=== PATIENT | male | born 1925 | race Caucasian/White ===

== ENCOUNTER 2016-12-04 00:22 | Emergency (ER) | payer MEDICARE ==
[~2016-12-04] VITALS: Ht 177.8 cm; Wt 94.0 kg
[~2016-12-04 00:22] MED LIST: 1-ME1LIQ PO; ALLO100T PO; ASPI81 PO; ATOR20TA PO; AUGM500T7 PO; AZIT250T74 PO; FINA5TAB77 PO; LISI40TA PO; TAMS0.4C67 PO; TOVI4TAB PO
[2016-12-04 00:31] VITALS: BP 195/87; PULSE 98; RESP 20; TEMP 97.8; O2SAT 95
[2016-12-04] MEDS ORDERED: TOVI4TAB PO (00:53)
[2016-12-04] MEDS ORDERED: LISI40TA PO (00:53)
[2016-12-04] MEDS ORDERED: ATOR40TA16 PO (00:53)
[2016-12-04] MEDS ORDERED: ALLO100T PO (00:53)
[2016-12-04] MEDS ORDERED: FINA5TAB2 PO (00:53)
--- NOTE | 2016-12-04 02:16 | PD ---
HPI Chief Complaint: Complaint Time Seen by Provider: 01:48 Travel History International Travel<30 days: No Contact w/Intl Traveler<30days: No Traveled to known affect area: No History of Present Illness HPI The patient is an 89-year-old male who was seen by Dr. Wilkes in his office today at around 1:30 when a Spanner prosthetic stent was put in. The patient feels that his bladder is full and unable to urinate since 4 PM yesterday. PFSH Past Medical History Arthritis: Yes (HANDS) Cancer: Yes (SKIN) Cardiovascular Problems: No High Cholesterol: Yes Diabetes: No Diminished Hearing: Yes (BILAT HEARING AIDS) Endocrine: No Genitourinary: No Hepatitis: No Hiatal Hernia: No Hypertension: Yes Immune Disorder: No Implanted Vascular Access Dvce: Yes Musculoskeletal: No Neurologic: No Psychiatric: No Reproductive: No Respiratory: No Thyroid Disease: No Tetanus Vaccination: Unknown Influenza Vaccination: Yes Past Surgical History Abdominal Surgery: Yes (RIH REPAIR, APPEND.,hernia) Appendectomy: Yes Body Medical Devices: KNEE REPLACEMENT Cardiac Surgery: No Ear Surgery: No Endocrine Surgery: No Eye Surgery: Yes (BILAT. CATARCT) Genitourinary Surgery: Yes (PROSTATIC STENT) Joint Replacement: Yes (RIGHT TOT. KNEE) Oral Surgery: Yes (LARYNX SX,?,TONSILS) Pacemaker: No Thoracic Surgery: No Other Surgery: Yes Social History Alcohol Use: No Tobacco Use: No Substance Use: No Allergies-Medications (Allergen,Severity, Reaction): Coded Allergies: No Known Allergies (Unverified , 12/04/16) Reported Meds & Prescriptions Reported Meds & Active Scripts Active Reported Lisinopril 40 Mg Tab 40 Mg PO DAILY Finasteride 5 Mg Tab 5 Mg PO DAILY Do not crush. Toviaz ER (Fesoterodine Fumarate) 4 mg Aurelia 4 Mg PO DAILY Atorvastatin (Atorvastatin Calcium) 40 Mg Tab 40 Mg PO HS Allopurinol 100 Mg Tab 100 Mg PO BID Review of Systems Except as stated in HPI: all other systems reviewed are Neg Physical Exam Narrative GENERAL: Well-nourished, alert and oriented, obese, elderly patient in slight apparent distress with his ladder distention. His vital signs show blood pressure 195/87 but are otherwise normal.. SKIN: Warm and dry. HEAD: Normocephalic. EYES: No scleral icterus. No injection or drainage. NECK: Supple, trachea midline. No JVD or lymphadenopathy. CARDIOVASCULAR: Regular rate and rhythm without murmurs, gallops, or rubs. RESPIRATORY: Breath sounds equal bilaterally. No accessory muscle use. GASTROINTESTINAL: Abdomen soft, non-tender, nondistended abdomen but the bladder is definitely distended. MUSCULOSKELETAL: No cyanosis, or edema. BACK: Nontender without obvious deformity. No CVA tenderness. Data Data Last Documented VS Vital Signs Date Time Temp Pulse Resp B/P Pulse Ox O2 Delivery O2 Flow Rate FiO2 12/04/16 03:20 81 18 164/74 95 Room Air 12/04/16 00:31 97.8 Orders Urinary Catheter Insert/Apply (12/04/16 02:16) Bladder/Catheter Irrigation (12/04/16 02:16) [facility] Medical Decision Making Medical Screen Exam Complete: Yes Emergency Medical Condition: Yes Medical Record Reviewed: Yes Differential Diagnosis Prostatic urethral obstruction, malfunctioning Spanner prostatic splint Narrative Course The patient has a malfunctioning prosthetic splint. His bladder scan indicates 837 cc in the bladder. His bladder feels distended and his urine is bloody. We are calling Dr. Wilkes at this time. Dr. Doran called back and he instructed me to pull on the cord and the penis, it may be a difficult pole since there is a small bladder and the apparatus. I did so and the apparatus came out fairly easily and the patient urinated bloody urine. It is now 0421 and the patient has much less blood in his urine after continuous bladder irrigation. It is possible her read newsprint through the leg bag tubing. The urine is a watery/pale reddish color. He will be given a leg bag and he will follow-up with Dr. Wilkes later on today. Diagnosis Primary Impression: Ureteral stent displacement Additional Impression: Bladder distention Additional Instructions: Follow-up with Dr. Wilkes, call him later today to set up that appointment as soon as possible. Disposition: 01 DISCHARGE HOME Condition: Stable Feliciano Russo MD Dec 04, 2016 02:16
[2016-12-04 02:50] VITALS: BP 162/78; PULSE 82; RESP 18; O2SAT 95
[2016-12-04 03:20] VITALS: BP 164/74; PULSE 81; RESP 18; O2SAT 95
[2016-12-04 04:30] VITALS: BP 173/81; PULSE 77; RESP 18; O2SAT 95
[2016-12-17] MEDS ORDERED: CIPR-9 PO (12:08)
[2016-12-17] MEDS ORDERED: AMLO10TA2 PO (12:08)
== END 2016-12-04 05:02 | disposition home or self-care (01) ==
LOC: PHED 00:22
DX: T83.122A Displacement of indwelling ureteral stent, initial encounter (principal)
CPT/HCPCS: 51700

== ENCOUNTER → 2016-12-17 | Day surgery (SDC) | payer MEDICARE ==
[~2016-12-17] VITALS: Ht 177.8 cm; Wt 90.2 kg
[~2016-12-17] MED LIST changes: -1-ME1LIQ PO; +ACETAMINOPHEN/HYDROcodone 325 MG/5 MG TAB PO PRN; +AMLO10TA2 PO; -ASPI81 PO; -ATOR20TA PO; +ATOR40TA16 PO; -AUGM500T7 PO; -AZIT250T74 PO; +BACITRACIN TOP OINT 15 GM TUBE ONE; +BUPIVACAINE HCL PF 0.5% 30 ML VIAL ONE; +CIPR-9 PO; +DO NOT ADM ANY ANTICOAGULANT DRUGS XX PRN; +EPINEPHrine HCL (1:1000) 1 MG/ML VIAL ONE; +FAMOTIDINE 20 MG/2 ML VIAL ONE; +FINA5TAB2 PO; -FINA5TAB77 PO; +INSULIN HUMAN REGULAR 1,000 UNITS/10 ML VIAL SQ PRN; +LACTATED RINGER'S 1000 ML IV SCH; +LIDOCAINE 1%/EPINEPHrine 1:100,000 SOLN 30 ML VIAL ONE; +METOPROLOL TARTRATE 25 MG TAB PO PRN; +MINERAL OIL 10 ML VIAL ONE; +NEOSTIGMINE 3 MG/3 ML SYR IV ONE; +ONDANSETRON HCL 4 MG/2 ML VIAL IV PUSH ONE; +PROPOFOL 200 MG/20 ML AMP IV ONE; +SODIUM CHLORID 0.9% 500 ML IV SCH; -TAMS0.4C67 PO; +ceFAZolin 2 GM PREMIX 50 ML IV SCH; +ceFAZolin 2 GM PREMIX 50 ML ONE; +ePHEDrine/NS 25 MG/5 ML SYR IV ONE
[2016-12-17 12:10] VITALS: BP 182/83; PULSE 78; RESP 18; TEMP 98; O2SAT 96
[2016-12-17 16:00] VITALS: BP 178/63; PULSE 86; RESP 16; TEMP 97.9; O2SAT 97
--- NOTE | 2016-12-18 20:40 | MP ---
cc: SANCHO MALIK M.D. DATE OF SURGERY 12/17/16 PREOPERATIVE DIAGNOSES Biopsy-proven squamous cell carcinoma left ear helix POSTOPERATIVE DIAGNOSIS Biopsy-proven squamous cell carcinoma left ear helix OPERATION Excision frozen section left ear helix squamous cell carcinoma of 3 x 1 cm excision full-thickness skin graft from the left neck. SURGEON Dr. Adal Malik. 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 The area has multiple small suspicious lesions outside of the biopsy itself and all of them were converted into a single excision. The reconstruction was done with a skin graft from the left neck access. PROCEDURE IN DETAIL The patient was brought to the operating room, was given spine position. Anesthesia was started. Prep and drape was done. IV antibiotic had been given. Time out was called and completed. The preoperative markings were reinforced. The ear skin was tumesced with lidocaine 1% with epi solution and the specimen was excised sparing the cartilage border intact. The specimen was suture marked superior, sent for frozen section. A full-thickness skin graft was harvested from the neck, slightly oversized in the defect and it was pinned on half of the bridge to match the anterior helical portion of the skin and leaving it thick on the posterior aspect and the previous border. The first suture was to transfix the front and the back of the graft to the cartilage and then the rest of the graft was tailored in place. The frozen section report received indicated clear margins. The graft insetting was completed, removing the excess graft. Local dressing was applied with a bolster and through and through suture. The patient remained stable through the procedure. Intraoperative blood loss less than 2 mL. No complications. signed, not fully reviewed MD VITALIY Rosales/ /4:21 PM /8:32 PM FELICITAS
== END | disposition home or self-care (01) ==
LOC: HSDC 11:20
PROVIDERS: ATTEND Plastic Surgery
DX: C44.229 Squamous cell carcinoma of skin of left ear and external auricular canal (principal); L57.0 Actinic keratosis
CPT/HCPCS: 00300; 11643; 15260; 88305; 88331; J0690; J2405; J2710; J3010; J0171